=== PATIENT | male | born 1970 | race African-American/Black ===

== ENCOUNTER 2019-05-17 13:48 | Emergency (ER) | payer OTHER, SELFPAY | END 2019-05-17 15:46 | disposition home or self-care (01) | LOC: ERS 13:48 | DX: Z02.1 Encounter for pre-employment examination (principal); E11.9 Type 2 diabetes mellitus without complications; I10 Essential (primary) hypertension; F17.210 Nicotine dependence, cigarettes, uncomplicated; Z79.84 Long term (current) use of oral hypoglycemic drugs; Z79.899 Other long term (current) drug therapy | CPT/HCPCS: 36416; 99281 ==

== ENCOUNTER 2020-03-27 09:56 | Emergency (ER) | payer SELFPAY ==
[2020-03-27] MEDS ORDERED: Lisinopril 10 MG TAB ONE (11:11)
--- NOTE | 2020-03-27 11:17 | RAD ---
PORTABLE CHEST: Date: 03/27/2020 PROVIDED CLINICAL HISTORY: Blurred vision. FINDINGS: No comparisons. Cardiac silhouette appears enlarged, which may be at least partially on the basis of portable techniq ue. No focal consolidation, pleural fluid, or pneumothorax apparent. IMPRESSION: No evidence for an acute cardiopulmonary process. POS: [facility]
[2020-03-27 11:25] LABS: #Eosinphils 0.1 thou/uL (0.0-0.7); #Lymphocytes 2.2 thou/uL (1.20-3.40); #Monocytes 0.4 thou/uL (0.11-0.59); #Neutrophils 5.4 thou/uL (1.40-6.50); %Basophils 0.5 % (0.0-1.0); %Eosinophils 1.7 % (0.0-10.0); %Lymphocytes 26.7 % (21.0-51.0); %Monocytes 4.6 % (0.0-10.0); %Neutrophils 66.4 % (42.0-75.0); Hemoglobin 14.8 g/dL (14.0-18.0); Mean Corpuscular HGB CONC 31.6 g/dL (32.0-36.0); Mean Corpuscular Volume 88.8 fL (78.0-98.0); Platelet Count 163 thou/uL (130-400); RBC Distribution Width 13.5 % (11.5-14.5); Red Blood Cell (RBC) Count 5.29 mill/uL (4.70-6.10); White Blood Cell (WBC) Count 8.1 thou/uL (4.8-10.8)
[2020-03-27 11:43] LABS: ALT (SGPT) 30 U/L (8-55); AST (SGOT) 15 U/L (5-34); Albumin 4.2 g/dL (3.5-5.0); Alkaline Phosphatase 87 U/L (40-110); Anion Gap 16 mmol/L (10-20); BUN (Urea Nitrogen) 9 mg/dL (8.9-20.6); Bilirubin, Total 0.4 mg/dL (0.2-1.2); CK (CPK) 154 U/L (30-200); Calc. Creatinine Clearance 0 mL/min (70-130); Calcium 9.3 mg/dL (7.8-10.44); Carbon Dioxide 25 mmol/L (22-29); Chloride 101 mmol/L (98-107); Estimated GFR-MDRD 90; Globulin 2.8 g/dL (2.4-3.5); Glucose 173 mg/dL (70-105); Sodium 138 mmol/L (136-145)
== END 2020-03-27 12:48 | disposition home or self-care (01) ==
LOC: ERS 09:56
DX: I10 Essential (primary) hypertension (principal); E11.9 Type 2 diabetes mellitus without complications; F17.210 Nicotine dependence, cigarettes, uncomplicated; Z79.84 Long term (current) use of oral hypoglycemic drugs; Z79.899 Other long term (current) drug therapy
CPT/HCPCS: 36415; 71045; 80053; 82550; 84484; 85025; 93005

== ENCOUNTER 2025-11-04 13:39 | Emergency (ER) | payer BC ==
[2025-11-04] MEDS ORDERED: Lisinopril 10 MG TAB ONE (14:16)
[2025-11-04 14:31] LABS: Glucose, Urine (Dipstick) Negative (Negative); Leukocyte Negative (Negative); Protein, Urine (Dipstick) 100 mg/dL (Neg-Trace); Specific Gravity, Urine 1.015 (1.005-1.030)
[2025-11-04 14:36] LABS: CAUTI Indications for Culture Pelvic or flank pain; RBC/HPF None Seen HPF (0-3); WBC/HPF None Seen HPF (0-3)
[2025-11-04 14:36] LABS: #Basophils 0.06 10x3/uL (0.0-0.2); #Eosinophils 0.12 10x3/uL (0.0-0.7); #Monocytes 0.53 10x3/uL (0.11-0.59); #Neutrophils 5.86 10x3/uL (1.40-6.50); %Basophils 0.7 % (0.0-1.0); %Eosinophils 1.4 % (0.0-10.0); %Lymphocytes 21.5 % (21.0-51.0); %Monocytes 6.3 % (0.0-10.0); %Neutrophils 69.9 % (42.0-75.0); Hematocrit 44.1 % (42.0-52.0); Hemoglobin 13.3 g/dL (14.0-18.0); Mean Corpuscular Hemoglobin 25.0 pg (27.0-31.0); Mean Corpuscular Volume 82.7 fL (78.0-98.0); Platelet Count 256 10x3/uL (130-400); Red Blood Cell (RBC) Count 5.33 mill/uL (4.70-6.10); White Blood Cell (WBC) Count 8.40 10x3/uL (4.8-10.8)
[2025-11-04 14:37] LABS: Urine Culture Reflex No No
[2025-11-04 14:54] LABS: ALT (SGPT) 10 U/L (Less than 45); AST (SGOT) 19 U/L (11-34); Albumin 3.5 g/dL (3.1-4.5); Alkaline Phosphatase 78 U/L (40-110); Anion Gap 15 mmol/L (10-20); BUN (Urea Nitrogen) 10 mg/dL (8.4-25.7); Bilirubin, Total 1.5 mg/dL (0.3-1.2); Calc. Creatinine Clearance 0 mL/min (70-130); Calcium 8.5 mg/dL (7.8-10.44); Carbon Dioxide 20 mmol/L (22-29); Chloride 107 mmol/L (98-107); Globulin 3.1 g/dL (2.4-3.5); Glucose 142 mg/dL (70-105); Potassium 3.7 mmol/L (3.5-5.1); Sodium 138 mmol/L (136-145)
[2025-11-04 14:54] LABS: Cocaine Metabolite Screen PRELIM POSITIVE (Negative); THC/Cannabinoid Screen Negative (Negative); Tricyclic Screen Negative (Negative)
[2025-11-04 14:55] LABS: Acetaminophen Less than 10 mcg/mL (Less than 10); Salicylate Less than 8.0 mg/dL (Less than 8.0)
[2025-11-04] MEDS ORDERED: Azithromycin 250 MG TAB ONE (15:22)
[2025-11-04] MEDS ORDERED: Amoxicillin/Potassium Clav 875 MG TAB ONE (15:22)
== END 2025-11-04 15:33 | disposition home or self-care (01) ==
LOC: ERS 13:39
DX: J18.9 Pneumonia, unspecified organism (principal); I10 Essential (primary) hypertension; E11.9 Type 2 diabetes mellitus without complications; F17.210 Nicotine dependence, cigarettes, uncomplicated; Z79.84 Long term (current) use of oral hypoglycemic drugs; Z55.6 Problems related to health literacy; Z79.899 Other long term (current) drug therapy
CPT/HCPCS: 71045; 80053; 80306; 80307; 81001; 83880; 84484; 85025; 87428; 93005; 94760